=== PATIENT | female | born 2000 | race Caucasian/White ===

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

== ENCOUNTER → 2022-04-21 | Outpatient (CLI) | payer BC, OTHER, SELFPAY ==
--- NOTE | 2022-04-21 | TONS_PTH ---
PATIENT: [facility][id number] AGE/SX: 21/F ROOM: RE04/21/[address]: Dr. Jacob Zelaya MD : 2000 BED: DIS: 04/21/2022 SPEC #: [id number] RECD: 04/21/22 14:55 STATUS: QUYEN BLANTON #: [id number] TANJA: 04/21/22 00:[address]: Jacob Zelaya DEPT: SURGICAL PATHOLOGY RECD BY: Patricia Polanco ENTERED: 04/22/22 07:09 SP TYPE: TONSILS OTHR DR: Dr. Fei Carr MD [facility] Tissues: Tonsil, NOS Procedures: Surgery Specimen Level III HEADER OPERATION: Tonsillectomy PRE-OP DIAGNOSIS: Chronic tonsillitis TISSUE SUBMITTED: Bilateral tonsils, pin on right MICROSCOPIC DIAGNOSIS Bilateral tonsils, tonsillectomy: Reactive lymphoid hyperplasia, consistent with chronic tonsillitis. Focal actinomyces colonization. CAROLINE:eusebio 04/23/2022 MICROSCOPIC DESCRIPTION Slides are reviewed. GROSS DESCRIPTION Received is one container labeled with the patient's name and designated tonsils - pin on right are two tonsils that in aggregate weigh 15.4 gm. The right tonsil has a pin on it and measures 3.5 x 2.0 x 2.0 cm. The left tonsil measures 4.0 x 2.0 x 2.0 cm. Both tonsils are similar in appearance. The external surfaces are pink-hdez, smooth, glistening and somewhat lobulated. Focally they are hemorrhagic, granular and bear cautery artifact. Serial cross sections through the tonsils reveal normal tonsillar architecture. Sections are submitted in two cassettes as follows: 1 - right tonsil, 2 - left tonsil. / CAROLINE:eusebio 04/22/2022 TC:3 CPT: 68145 x2
== END | disposition home or self-care (01) ==
LOC: LABSPEC 15:46
PROVIDERS: PCP Pediatrics; Referring Provider Otolaryngology; Visit Provider Otolaryngology
DX: J35.01 Chronic tonsillitis (principal)
CPT/HCPCS: 88304